=== PATIENT | male | born 1970 | race Caucasian/White ===

== ENCOUNTER 2018-12-11 07:51 | Emergency (ER) | payer MEDICAID ==
[~2018-12-11] VITALS: Ht 170.2 cm; Wt 77.3 kg
[2018-12-11 08:16] VITALS: BP 127/86
[2018-12-11] MEDS ORDERED: ketorolac trometh inj. 60 MG/2 ML VIAL IM ONE (10:25)
[2018-12-11] MEDS ORDERED: CYCL-1 PO (10:25)
== END 2018-12-11 11:10 | disposition home or self-care (01) ==
LOC: ER 07:51
DX: S13.4XXA Sprain of ligaments of cervical spine, initial encounter (principal); M62.838 Other muscle spasm; Z79.899 Other long term (current) drug therapy; X58.XXXA Exposure to other specified factors, initial encounter; Y93.89 Activity, other specified; Y92.89 Other specified places as the place of occurrence of the external cause; Y99.8 Other external cause status
CPT/HCPCS: 72040; 73030; 99284; J1885

== ENCOUNTER 2018-12-13 10:14 | Emergency (ER) | payer MEDICAID ==
[~2018-12-13] VITALS: Ht 170.2 cm; Wt 75.6 kg
[~2018-12-13 10:14] MED LIST: CYCL-1 PO
[2018-12-13 10:44] VITALS: BP 139/88
[2018-12-13] MEDS ORDERED: HYDR-3965 PO (12:05)
== END 2018-12-13 12:29 | disposition home or self-care (01) ==
LOC: ER 10:15
DX: S16.1XXD Strain of muscle, fascia and tendon at neck level, subsequent encounter (principal); Z79.899 Other long term (current) drug therapy; X58.XXXD Exposure to other specified factors, subsequent encounter
CPT/HCPCS: 99283